=== PATIENT | female | born 1995 | race Caucasian/White ===

== ENCOUNTER → 2022-03-09 04:18 | Observation (INO) | END | disposition home or self-care (01) | LOC: 1NENULAB | PROVIDERS: ADMIT Obstetrics & Gynecology; ATTEND Obstetrics & Gynecology ==

== ENCOUNTER 2022-03-12 09:41 | Inpatient (IN) ==
[~2022-03-12 09:41] MED LIST: *HR* Nalbuphine 10 MG/ML AMPUL IV PRN; Famotidine 20 MG/2 ML VIAL IVP PRN; Metoclopramide 10 MG/2 ML VIAL IVP PRN; Naloxone 0.4 MG/ML INJ IVP PRN; Ondansetron 4 MG/2 ML VIAL IVP PRN
[2022-03-12] MEDS ORDERED: Ringers Solution, Lactated 1,000 ML IVC SCH (09:45)
[2022-03-12] MEDS ORDERED: Ropivacaine/PF 0.2% 20 ML VIAL EP ONE (09:55)
[2022-03-12] MEDS ORDERED: EPHEDrine 50 MG/ML VIAL IVP PRN (09:55)
[2022-03-12] MEDS ORDERED: *HR* FentaNYL (PF) 100 MCG/2 ML VIAL EP ONE (09:55)
[2022-03-12] MEDS ORDERED: Epidural Premix (fent/bupiv) 110 ML EP ONE (09:57)
[2022-03-12] MEDS ORDERED: Epidural Premix (fent/bupiv) 110 ML EP SCH (10:00)
[2022-03-12 10:08] LABS: Basophils # 0.1 K/mcL (0.0-0.2); Basophils % 0.3 %; Eosinophils % 0.1 %; Hematocrit 39.3 % (35.3-44.9); Hemoglobin 13.7 g/dL (11.5-15.4); Immature Granulocytes % 0.8 % (0-4); Lymphocytes # 2.3 K/mcL (0.6-4.6); Lymphocytes % 14.6 %; Mean Corpuscular HGB Conc 34.9 g/dL (31.6-35.5); Mean Corpuscular Volume 86.2 fL (83.0-100.0); Mean Platelet Volume 10.2 fL (9.4-12.4); Monocytes # 0.9 K/mcL (0.0-1.3); Monocytes % 5.5 %; Neutrophils # 12.5 K/mcL (1.6-8.9); Platelet Count 340 K/mcL (140-400); Red Blood Count 4.56 M/mcL (3.82-4.97); Red Cell Distribution Width 13.2 % (11.5-14.5); Segmented Neutrophils % 78.7 %; White Blood Count 15.9 K/mcL (4.3-11.1)
[2022-03-12] MEDS ORDERED: Ringers Solution, Lactated 1,000 ML ONE (10:51)
[2022-03-12 10:58] LABS: Amphetamine Screen,Urine Negative ng/mL (Cutoff=1000); Barbiturate Screen,Urine Negative ng/mL (Cutoff=200); Benzodiazepines Screen,Urine Negative ng/mL (Cutoff=200); Cannabinoid Screen,Urine Negative ng/mL (Cutoff = 50); Cocaine Screen,Urine Negative ng/mL (Cutoff= 300); Opiate Screen,Urine Negative ng/mL (Cutoff=300); Phencyclidine Screen,Urine Negative ng/mL (Cutoff=25)
[2022-03-12] MEDS: Oxytocin 30 UNIT/503 ML BAG IVC SCH ×2 (16:19→19:21)
[2022-03-12] MEDS ORDERED: Lanolin 7 G OINT...G. TP PRN (16:51)
[2022-03-12] MEDS ORDERED: Rho Immune Globulin 1,500 UNIT SYRINGE IM PRN (16:51)
[2022-03-12] MEDS ORDERED: Measles/Mumps/Rubella Vacc 0.5 ML VIAL SQ PRN (16:51)
[2022-03-12] MEDS ORDERED: Ondansetron ODT 4 MG TAB.RAPDIS SL PRN (16:51)
[2022-03-12] MEDS ORDERED: OXYTOCIN/RINGERS LACTATE 10 UNIT/166.6 ML BAG IVC ONE (16:51)
[2022-03-12] MEDS ORDERED: Benzocaine/Menthol 56 GM AEROSOL SPRAY TP PRN (16:51)
[2022-03-12] MEDS: Ibuprofen 600 MG TABLET PO SCH (17:38)
[2022-03-12] MEDS: Acetaminophen 325 MG TABLET PO SCH (17:38)
[2022-03-13] MEDS: Acetaminophen 325 MG TABLET PO SCH ×2 (03:21→10:06)
[2022-03-13] MEDS: Ibuprofen 600 MG TABLET PO SCH ×2 (03:21→10:06)
[2022-03-13 03:38] LABS: Basophils % 0.3 %; Eosinophils # 0.1 K/mcL (0.0-0.6); Eosinophils % 0.7 %; Immature Granulocytes % 0.9 % (0-4); Lymphocytes # 3.2 K/mcL (0.6-4.6); Lymphocytes % 24.5 %; Mean Corpuscular HGB Conc 34.5 g/dL (31.6-35.5); Mean Corpuscular Volume 86.8 fL (83.0-100.0); Monocytes % 7.6 %; Neutrophils # 8.7 K/mcL (1.6-8.9); Platelet Count 278 K/mcL (140-400); Red Cell Distribution Width 13.3 % (11.5-14.5); White Blood Count 13.1 K/mcL (4.3-11.1)
[2022-03-13 03:40] LABS: Hemoglobin 11.4 g/dL (11.5-15.4)
[2022-03-13 07:18] VITALS: BP 108/67; PULSE 62; TEMP 97.9; O2SAT 98
[2022-03-13] MEDS ORDERED: Prenatal Vit/FA 1 EACH TABLET PO SCH ×3 (09:00)
== END 2022-03-13 15:31 | disposition home or self-care (01) | DRG 807 ==
LOC: 1NENULAB → 1NENUOBS 16:44
PROVIDERS: ADMIT Student in an Organized Health Care Education/Training Program; ATTEND Student in an Organized Health Care Education/Training Program